=== PATIENT | female | born 1945 | race Caucasian/White ===

== ENCOUNTER 2018-12-21 17:27 | Inpatient (IN) | payer MEDICARE, OTHER ==
[~2018-12-21] VITALS: Ht 162.6 cm; Wt 49.7 kg
[2018-12-21] MEDS ORDERED: LOVA40 PO (22:11)
[2018-12-21] MEDS ORDERED: Bentyl10 MG (22:11)
[2018-12-21] MEDS ORDERED: Prinivil10 MG PO (22:11)
[2018-12-22 00:17] LABS: Alanine Aminotransfer (ALT/SGP 28 U/L (12-78); Albumin, Blood 2.9 g/dL (3.4-5.0); Albumin/Globulin Ratio 0.9 (0.8-1.8); Alk Phos 64 U/L (50-136); Anion Gap 9 mmol/L (6-16); Aspartate Aminotrans (AST/SGOT 17 U/L (12-37); Bilirubin, Total 1.2 mg/dL (0.1-1.0); Blood Urea Nitrogen 16 mg/dL (8-24); CO2, Blood 22 mmol/L (21-32); Calcium, Blood 7.7 mg/dL (8.5-10.1); Chloride, Blood 109 mmol/L (98-108); Creatinine, Blood 0.94 mg/dL (0.40-1.00); Globulin, Blood 3.3 g/dL (2.2-4.0); Glomerular Filtration Rate >60 (60-); Glucose, Blood 92 mg/dL (70-99); Potassium, Blood 3.7 mmol/L (3.5-5.5); Sodium, Blood 140 mmol/L (136-145); Total Protein, Blood 6.2 g/dL (6.4-8.2)
[2018-12-22 01:31] LABS: Adenovirus Not Detected (NOT DETECT); Bordetella pertussis Not Detected (NOT DETECT); Chlamydophila pneumoniae Not Detected (NOT DETECT); Coronavirus 229E Not Detected (NOT DETECT); Coronavirus HKU1 Not Detected (NOT DETECT); Coronavirus NL63 Not Detected (NOT DETECT); Coronavirus OC43 Not Detected (NOT DETECT); Human Metapneumovirus Not Detected (NOT DETECT); Human Rhinovirus/Enterovirus Not Detected (NOT DETECT); Influenza A Not Detected (NOT DETECT); Influenza A/2009-H1 Not Detected (NOT DETECT); Influenza A/H1 Not Detected (NOT DETECT); Influenza A/H3 Not Detected (NOT DETECT); Influenza B Not Detected (NOT DETECT); Mycoplasma pneumoniae Not Detected (NOT DETECT); Parainfluenza Virus 1 Not Detected (NOT DETECT); Parainfluenza Virus 2 Not Detected (NOT DETECT); Parainfluenza Virus 3 Not Detected (NOT DETECT); Parainfluenza Virus 4 Not Detected (NOT DETECT); Respiratory Syncytial Virus Not Detected (NOT DETECT)
[2018-12-22 03:50] LABS: Hematocrit 33.7 % (33.0-51.0); Hemoglobin 10.9 g/dL (11.5-16.0); Mean Corpuscular HGB 29.9 pg (26.0-34.0); Mean Corpuscular HGB Conc 32.3 g/dL (31.5-36.5); Mean Corpuscular Volume 93 fL (80-100); Mean Platelet Volume 10.2 fL (9.1-12.4); Platelet Count 146 K/mm3 (150-400); RDW Coefficient Variation 13.1 % (11.7-14.2); RDW Standard Deviation 44.8 fL (35.1-46.3); Red Blood Cell Count 3.64 M/mm3 (3.80-5.20); White Blood Cell Count 15.52 K/mm3 (4.00-11.30)
[2018-12-22 04:15] LABS: Albumin, Blood 2.8 g/dL (3.4-5.0); Albumin/Globulin Ratio 0.8 (0.8-1.8); Bilirubin, Total 0.7 mg/dL (0.1-1.0); Bun/Creatinine Ratio 17.2 (12.0-20.0); Calcium, Blood 7.7 mg/dL (8.5-10.1); Creatinine, Blood 0.99 mg/dL (0.40-1.00); Globulin, Blood 3.5 g/dL (2.2-4.0); Potassium, Blood 3.9 mmol/L (3.5-5.5); Total Protein, Blood 6.3 g/dL (6.4-8.2)
[2018-12-22 05:03] LABS: Source, Urine Catheter
[2018-12-22 05:04] LABS: Bilirubin, Urine Neg (Neg); Blood, Urine 3+ (Neg); Glucose Qualitative, Urine Neg (Neg); Ketones, Urine 3+ (Neg); Leukocyte Esterase, Urine Neg (Neg); Nitrite, Urine Neg (Neg); Protein, Urine 2+ (Neg); Specific Gravity, Urine 1.015 (1.003-1.022); Urobilinogen, Urine NORM (Normal)
[2018-12-22 05:11] LABS: Appearance, Urine Clear (Clear); Color, Urine Yellow (P-Yellow)
[2018-12-22 05:14] LABS: Bacteria Few /hpf; Squamous Epithelial Cells Mod /hpf (Few); White Blood Cells, Urine Not Seen /hpf (0-5)
--- NOTE | 2018-12-22 06:09 | NUR ---
ADMIT/SHIFT SUMMARY PT ARRIVED TO ICU 13 AT 0220 VIA ER BED. PT IS INTUBATED AND KICKING LEGS IN BED AT TIME OF ARRIVAL. PT TRANSFERED TO ICU BED. PROPOFOL INCREASED TO 40 MCG/GK/MIN AT TIME OF ARRIVAL. PT COPIOUS CLEAR ORAL SECRETIONS. VITAL SIGNS STABLE AT THIS TIME. VENT SETTINGS AC 14, TV 400, PEEP 5, FIO2 30%. PT CALMED AND PROPOFOL DOWN TO 30 MCG/KG/MIN AT THIS TIME. SBW RESTRAINTS IN PLACE. RUIZ TEMP PROBE IN PLACE FROM ER. UA SENT. PT SPOUSE AT BEDSIDE AT THIS TIME. NO ACUTE CHANGES SINCE ARRIVAL. WILL CONTINUE TO MONITOR AND REPORT OFF TO ONCOMING RN.
--- NOTE | 2018-12-22 07:33 | NUR ---
ASSUMED CARE REPORT FROM OLEG VEE. PATIENT IS INTUBATED, SEDATED ON PROPOFOL AT 30 MCG/KG/MIN AND RESTRAINED. AT BEDSIDE, GOING HOME UNTIL 1300 TO SLEEP.
--- NOTE | 2018-12-22 08:16 | NUR ---
MD VISIT DR. WHITE IN. ABG ORDERED.
[2018-12-22 08:45] LABS: PCO2 Arterial 30.1 mmHg (35-45); PO2 Arterial 108 mmHg (80-100); pH Blood Arterial 7.39 (7.35-7.45)
--- NOTE | 2018-12-22 09:27 | NUR ---
PATIENT CALM AND COOPERATIVE. FOLLOWS DIRECTION. MOUTHS "THANK YOU" AFTER CARE
--- NOTE | 2018-12-22 10:47 | NUR ---
CONFIRMED WITH ANSWERING SERVICE THAT CONSULT WAS CALLED IN
--- NOTE | 2018-12-22 10:48 | NUR ---
MD VISIT DR. DEGROOT IN
--- NOTE | 2018-12-22 10:48 | NUR ---
UPDATE GIVEN CALLED, UPDATE OF PLAN GIVEN.
--- NOTE | 2018-12-22 11:10 | NUR ---
UPDATE GIVEN TO DAUGHTER AFTER PATIENT NODDED YES THAT SHE COULD HAVE INFO.
--- NOTE | 2018-12-22 11:11 | NUR ---
DR. DIAMOND CALLED RE: CONSULT. DR. DEGROOT UPDATED HIM AND HE WILL BE IN THIS AFTERNOON. HE ORDERED AFRIN AT BEDSIDE AND THE BRONCHOSCOPE
--- NOTE | 2018-12-22 14:44 | NUR ---
AT BEDSIDE. SON IN TO VISIT. PATIENT WAS ABLE TO WRITE A NOTE FOR SON WHILE SEDATED ON 40 MCG/KG/MIN PROPOFOL. C/O BITE BLOCK HURTING. RT ADVISED
--- NOTE | 2018-12-22 16:27 | NUR ---
PATIENT COUGHING. REQUESTS A LITTLE MORE SEDATION WHEN ASKED. PROPOFOL TO 45 MCG/KG/MIN.
--- NOTE | 2018-12-22 22:29 | NUR ---
[place] of Care: Patient intubated and sedated. Ventilator to AC 14/400/5/25%, O2-98-100%, VSS. Propofol gtt at 45mcg/kg/min, occasional restlessness/agitation noted, gtt increased to 50mcg/kg/min. Verbal re-orientation/assurance also helpful to calm patient. Peripheral IV's x2 patent and intact. Patrick cath patent and intact, draining clear yellow urine. Dr. Ackerman contacted by day shift RN, awaiting his arrival to unit for possible bronchoscope procedure. Will continue to monitor for pain, comfort, safety.
[2018-12-23 03:47] LABS: BASOPHILS ABSOLUTE AUTO 0.03 K/mm3 (0.00-0.23); BASOPHILS PERCENT AUTO 0 % (0-2); EOSINOPHILS PERCENT AUTO 0 % (0-6); Hematocrit 34.3 % (33.0-51.0); Hemoglobin 11.3 g/dL (11.5-16.0); IMMATURE GRAN ABSOLUTE AUTO 0.24 K/mm3 (0.00-0.10); IMMATURE GRAN PERCENT AUTO 1 % (0-1); LYMPHOCYTES ABSOLUTE AUTO 0.99 K/mm3 (0.84-5.20); LYMPHOCYTES PERCENT AUTO 6 % (21-46); MONOCYTES ABSOLUTE AUTO 0.51 K/mm3 (0.16-1.47); MONOCYTES PERCENT AUTO 3 % (4-13); Mean Corpuscular HGB 29.7 pg (26.0-34.0); Mean Corpuscular HGB Conc 32.9 g/dL (31.5-36.5); Mean Platelet Volume 10.5 fL (9.1-12.4); NEUTROPHILS ABSOLUTE AUTO 15.46 K/mm3 (1.96-9.15); NEUTROPHILS PERCENT AUTO 90 % (41-73); Platelet Count 174 K/mm3 (150-400); RDW Coefficient Variation 13.2 % (11.7-14.2); RDW Standard Deviation 43.6 fL (35.1-46.3); Red Blood Cell Count 3.81 M/mm3 (3.80-5.20); White Blood Cell Count 17.23 K/mm3 (4.00-11.30)
[2018-12-23 03:50] LABS: Mean Corpuscular Volume 90 fL (80-100)
[2018-12-23 04:06] LABS: Alanine Aminotransfer (ALT/SGP 21 U/L (12-78); Albumin, Blood 2.7 g/dL (3.4-5.0); Albumin/Globulin Ratio 0.7 (0.8-1.8); Alk Phos 62 U/L (50-136); Anion Gap 8 mmol/L (6-16); Aspartate Aminotrans (AST/SGOT 12 U/L (12-37); Bilirubin, Total 0.4 mg/dL (0.1-1.0); Blood Urea Nitrogen 26 mg/dL (8-24); Bun/Creatinine Ratio 27.9 (12.0-20.0); CO2, Blood 22 mmol/L (21-32); Calcium, Blood 8.2 mg/dL (8.5-10.1); Chloride, Blood 114 mmol/L (98-108); Creatinine, Blood 0.93 mg/dL (0.40-1.00); Globulin, Blood 3.7 g/dL (2.2-4.0); Glomerular Filtration Rate >60 (60-); Glucose, Blood 173 mg/dL (70-99); Magnesium, Blood 2.3 mg/dL (1.6-2.4); Phosphorus, Blood 2.6 mg/dL (2.5-4.9); Potassium, Blood 3.5 mmol/L (3.5-5.5); Sodium, Blood 144 mmol/L (136-145); Total Protein, Blood 6.4 g/dL (6.4-8.2)
[2018-12-23 04:43] LABS: PCO2 Arterial 29.8 mmHg (35-45); PO2 Arterial 87.2 mmHg (80-100); pH Blood Arterial 7.44 (7.35-7.45)
--- NOTE | 2018-12-23 06:33 | NUR ---
SHIFT SUMMARY Continued intubation/sedation, vent to AC 14/400/5/25% VSS throughout shift. Propofol was at 35-50 throughout shift, periods of restlessness and anxiety, otherwise calm, cooperative and follows commands. Dr Ackerman to room early in shift performed nasal scope, confirmed moderate to severe epiglottal swelling. RT Phillip deflated ETT cuff x2, no cuff leak noted both occasions. Peripheral IV's remain patent and intact. Patrick cath remains patent and intact, draining clear yellow to dark yellow urine. Call placed to Dr. Villanueva this morning related to low urine output. Obtained orders for LR @ 75ml/hr. Also obtained order for fentanyl 25-50mcg q1h prn for complaints of throat pain. Will monitor until report to day shift.
--- NOTE | 2018-12-23 08:40 | NUR ---
INITIAL ASSESSMENT PATIENT IS INTUBATED AND ON SEDATION. PATIENT FOLLOWS SIMPLE COMMANDS, NODS HEAD TO QUESTIONS. PATIENT HAS BILATERAL SOFT WRIST RESTRAINTS IN PLACE. PATIENT WAS GIVEN PRN PAIN MEDICATION FOR THROAT PAIN. PATIENT IS HAVING CLEAR/WHITE SECRETIONS BEING SUCTIONED FROM ETT. PATIENT HAS AN OCCASIONAL PRODUCTIVE COUGH. PATIENT IS SATTING WELL ON CURRENT VENTILATOR SETTINGS: AC 14, TV 400, PEEP 5, FI02 6.5. HR IS 60S-70S. BP IS STABLE. PATIENT WAS GIVEN PRN SUPPOSITORY DUE TO LAST BM RECORDED 12/19/18. TEMP RUIZ IN PLACE DRAINING DARK YELLOW URINE. SKIN IS WNL. PROPOFOL IS AT 45 MCG/KG/MIN. LR AT 75 ML/HR TKO. BED LOW. CALL LIGHT IN REACH. WILL CONTINUE TO MONITOR.
--- NOTE | 2018-12-23 13:18 | NUR ---
PATIENT REMAINS INTUBATED AND SEDATED. PATIENT DAUGHTER IS AT THE BEDSIDE. PATIENT IS AFEBRILE. PATIENT REMAINS FOLLOWING SIMPLE COMMANDS, AND NODS HEAD TO QUESTIONS. LUNG SOUNDS ARE COARSE T/O AND DIMINISHED IN THE LOWER LOBES. PATIENT IS SATTING WELL WITH CURRENT VENTILATOR SETTINGS OF AC 14, TD 400, PEEP 5, FIO2 25%. PATIENT REMAINS NSR WITH HR IN THE 60S-70S. BP IS STABLE. RESIDUALS REINSTILLED ARE 5 ML AT THIS TIME. VHP IS INFUSING AT GOAL RATE OF 25 ML/HR. PATIENT HAS HYPOACTIVE BOWEL SOUNDS AT THIS TIME. PATIENT HAS TEMP RUIZ DRAINING DARK YELLOW/GREEN URINE. SKIN IS WNL. PROPOFOL 45 MCG/KG/MIN. LR 75 ML/HR. NO ACUTE CHANGES TO NOTE AT THIS TIME. WILL CONTINUE TO MONITOR.
--- NOTE | 2018-12-23 18:34 | NUR ---
SHIFT SUMMARY PATIENT REMAINS INTUBATED AND SEDATED. DAUGHTER AND SIGNIFICANT OTHER IN TO VISIT PATIENT TODAY AND WERE AT BEDSIDE. PATIENT HAD PERIODS OF AGITATION AND ANXIETY R/T COUGHING WHILE INTUBATED THROUGHOUT THE SHIFT. PATIENT CONTINUES TO FOLLOW COMMANDS, NODS HEAD TO QUESTIONS, AND UTILIZES THE PEN AND PAPER TO COMMUNICATE WHEN NEEDED. PATIENT HAS MODERATE WHITE/CLEAR SECRETIONS NOTED WHILE SUCTIONING ETT. PATIENT IS TOLERATING VENTILATOR SETTINGS WELL W AC 10, TV 500, PEEP 5, FIO2 25%. HR IN 50S-60S, BP IS STABLE. OG WAS PLACED THIS AM TO BEGIN VHP AT GOAL RATE OF 25 ML/HR AND THIS CONTINUES TO INFUSE. RESIDUALS REINSTILLED WERE BETWEEN 5-10ML. PRN SUPPOSITORY WAS GIVEN THIS AM, PATIENT HAD VERY SMALL BM AFTER THIS. PATIENT HAS YELLOW/GREEN URINE DRAINING FROM TEMP PROBE RUIZ. SKIN IS WNL. PROPOFOL 40 MCG/KG/MIN. LR 75 ML/HR. NS TKO. NO OTHER ACUTE CHANGES TO NOTE AT THIS TIME. BED LOW, CALL LIGHT WITHIN REACH.
--- NOTE | 2018-12-23 19:15 | NUR ---
ASSUMPTION OF CARE: Pt is intubated and sedated with vent set to AC 10/400/5/25%. Propofol at 40mcg/kg/min, Pt is awake, alert and oriented with VSS. OG tube present with continuous feeding, at goal rate of 25ml/hr. Pt complains of throat pain, PRN IV fentanyl effective to control pain. IV access x2, patent and infusing with dressings intact. Patrick cath in place draining clear yellow urine. Pt able to communicate via writing. Plan for spontaneous breathing trial in the morning. Will continue to monitor for pain, comfort, and safety.
[2018-12-24 05:00] LABS: PCO2 Arterial 36.5 mmHg (35-45); PO2 Arterial 74.3 mmHg (80-100); pH Blood Arterial 7.42 (7.35-7.45)
[2018-12-24 05:29] LABS: BASOPHILS ABSOLUTE AUTO 0.01 K/mm3 (0.00-0.23); BASOPHILS PERCENT AUTO 0 % (0-2); EOSINOPHILS PERCENT AUTO 0 % (0-6); Hematocrit 34.4 % (33.0-51.0); IMMATURE GRAN ABSOLUTE AUTO 0.13 K/mm3 (0.00-0.10); IMMATURE GRAN PERCENT AUTO 1 % (0-1); LYMPHOCYTES ABSOLUTE AUTO 0.91 K/mm3 (0.84-5.20); LYMPHOCYTES PERCENT AUTO 8 % (21-46); MONOCYTES ABSOLUTE AUTO 0.48 K/mm3 (0.16-1.47); MONOCYTES PERCENT AUTO 4 % (4-13); Mean Platelet Volume 10.8 fL (9.1-12.4); NEUTROPHILS PERCENT AUTO 87 % (41-73); Platelet Count 185 K/mm3 (150-400); RDW Coefficient Variation 13.2 % (11.7-14.2); RDW Standard Deviation 45.7 fL (35.1-46.3); Red Blood Cell Count 3.67 M/mm3 (3.80-5.20); White Blood Cell Count 12.13 K/mm3 (4.00-11.30)
[2018-12-24 05:33] LABS: Mean Corpuscular Volume 94 fL (80-100)
[2018-12-24 05:50] LABS: Alanine Aminotransfer (ALT/SGP 18 U/L (12-78); Albumin, Blood 2.4 g/dL (3.4-5.0); Albumin/Globulin Ratio 0.6 (0.8-1.8); Alk Phos 55 U/L (50-136); Anion Gap 6 mmol/L (6-16); Aspartate Aminotrans (AST/SGOT 8 U/L (12-37); Bilirubin, Total 0.2 mg/dL (0.1-1.0); Blood Urea Nitrogen 32 mg/dL (8-24); Bun/Creatinine Ratio 36.3 (12.0-20.0); CO2, Blood 26 mmol/L (21-32); Calcium, Blood 8.4 mg/dL (8.5-10.1); Chloride, Blood 112 mmol/L (98-108); Creatinine, Blood 0.88 mg/dL (0.40-1.00); Globulin, Blood 3.8 g/dL (2.2-4.0); Glomerular Filtration Rate >60 (60-); Glucose, Blood 181 mg/dL (70-99); Magnesium, Blood 2.4 mg/dL (1.6-2.4); Phosphorus, Blood 2.7 mg/dL (2.5-4.9); Potassium, Blood 4.1 mmol/L (3.5-5.5); Sodium, Blood 144 mmol/L (136-145); Total Protein, Blood 6.2 g/dL (6.4-8.2)
[2018-12-24 05:53] LABS: Vancomycin, Trough 5.1 ug/mL (5.0-10.0)
--- NOTE | 2018-12-24 05:59 | NUR ---
SHIFT SUMMARY: Pt continued intubation and sedation. Vent set to AC 10/400/5/25%, VSS throughout shift. Propofol titrated between 35 and 50 throughout shift, continues to be calm and cooperative, follows commands. Propofol increased per pts request to help sleep. IV x2 intact and infusing without difficulty. Tube feeding continues at goal with residuals of 15-60ml, no signs of GI intolerance. Patrick cath in place draining dark yellow/green tinged urine. PRN fentanyl give x2 for complaints of throat pain with good effect. ET cuff deflated by RT Gabbi, positive cuff leak noted. Will continue to monitor until report to day shift RN.
--- NOTE | 2018-12-24 07:54 | NUR ---
ASSUMED CARE PT. ALERT THIS AM. INTUBATED WITH PROPOFOL FOR SEDATION AT 55MCG/KG/MIN HOWEVER PT WIDE AWAKE AND FOLLOWING COMMANDS. PT. REQUESTING FREQUENT ORAL SUCTIONING DUE TO COPIOUS AMOUNTS OF THIN SECREATIONS. PT. ABLE TO WRITE ON CLIPBOARD THIS AM, PT WRITES TO COMMUNICATE. COARSE LUNG SOUNDS T/O. PT HAS GOOD COUGH AND GAG. CUFF LEAK NOTED THIS AM WHEN PT ATTEMPTING TO TALK. PT. VSS AT THIS TIME. TF RUNNING AT GOAL OF 25ML/HR WITH MINIMAL RESIDUAL. PT. MED FOR DISCOMFORT WITH FENTANYL PER REQUEST. PT. RUIZ IN PLACE DRAINING TO GRAVITY. NATYN.
--- NOTE | 2018-12-24 12:23 | NUR ---
DR. PINO AT BEDSIDE TUBE FEEDING PLACED ON STAND BY FOR POSSIBLE EXTUBATION TODAY AND AWAITING DR. DIAMOND TO SCOPE PT. PRIOR TO EXTUBATION. PT. PROPOFOL OFF AT THIS TIME WELL. PT TOLERATING WELL ON SPONT VENT SETTINGS. FAMILY AT BEDSIDE.
--- NOTE | 2018-12-24 13:20 | NUR ---
PT EXTUBATED DR. DIAMOND IN TO ASSESS/ SCOPE PT. PER DR. DIAMOND SWELLING HAS SIGNIFICANTLY DECREASED. DR. ELLSWORTH NOTIFIED. PT. EXTUBATED AT THIS TIME. PT. TOLERATED WELL. PLACED ON 4LNC UPON EXTUBATION. PT. HAS STRONG COUGH, NO STRIDOR OR WHEEZING NOTED POST EXTUBATION. SUCTION AT BEDSIDE.
--- NOTE | 2018-12-24 15:52 | NUR ---
UPDATE PT. RESTING COMFORTABLY IN BED, CURRENTLY ON 2LNC. PT. DENIES PAIN AT THIS TIME. NO S/S OF DIFFICULTY BREATHING. GOOD COUGH.
--- NOTE | 2018-12-24 17:52 | NUR ---
SHIFT SUMMARY PT. REMAINS ON 2LNC ONCE EXTUBATED. PT. VSS T/O SHIFT. PT. SIGNIFICANT OTHER REMAINS AT BEDSIDE. PT. VOICE HOARSE HOWEVER NO DIFFICULTY SWALLOWING OR BREATHING AT THIS TIME. PT. PROVIDED WITH ICE CHIPS AND IS TOLERATING WELL. RUIZ IN PLACE DRAINING TO GRAVITY. REPORT TO ONCOMING RN.
--- NOTE | 2018-12-24 20:14 | NUR ---
ASSESSMENT PT AWAKE SITTING UP IN BED WITH RT AT BEDSIDE. DENIES PAIN OR DICOMFORT EXCEPT FOR MOUTH SORE. BP ELEVATED. CALL OUT TO HOSPITALIST QUAN REGARDING MOUTH SORE AND ELEVATED BP. RECEIVED ORDER FOR LISNOPRIL AND ORALJEL. PT MOVING SELF IN BED. LUNGS CLEAR ON 1.5 LITERS O2 VIA NC. DENIES SOB OR COUGH. HEART RATE REGULAR. NO EDEMA. BT+ ABD SOFT AND NONTENDER. TAKING ICE CHIPS WITHOUT DIFFICULTY. RUIZ CATH PATENT DRAINING CLEAR YELLOW URINE. IV 20G TO RIGHT AC WITH LR AT TKO AND NS AT TKO, SITE CLEAR. IV 20 TO LEFT FA SALINE LOCKED, SITE CLEAR.
--- NOTE | 2018-12-24 20:42 | NUR ---
PAIN PT C/O GENERAL PAIN "ALL OVER" 5/10 MED WITH FENTANYL 50 MCQ WITH GOOD RESULTS. HS MEDS GIVEN.
--- NOTE | 2018-12-24 23:11 | NUR ---
HTN CALL TO HOSPITALIST QUAN REGARDING HTN, RECEIVED ORDER FOR HYDRALAZINE PO
--- NOTE | 2018-12-24 23:30 | NUR ---
REASSESSMENT PT AWAKE, BACK TO BED FROM BATHROOM. DENIES PAIN AT THIS TIME. MED WITH HYDRALAZINE PO FOR HTN. LUNGS CLEAR ON 1.5 LITERS O2 VIA NC. RESP EVEN AND NONLABORED. HEART RATE REGULAR. CONT TO MONITOR BP
--- NOTE | 2018-12-25 00:09 | NUR ---
PAIN PT C/O SHOULDER PAIN 01/18. BACK RUB DONE. PT MED WITH FENTANYL 25 MCQ.
--- NOTE | 2018-12-25 00:20 | NUR ---
PAIN PT STATES,"THAT GAS PAIN IS BACK IN MY SHOULDERS 02/18". PT GIVEN WARM BLANKET AROUUND SHOULDERS AND MED WITH FENTANYL 25 MCQ.
--- NOTE | 2018-12-25 02:28 | NUR ---
PAIN PT AWAKE. C/O PAIN 5/10 TO SHOULDERS. MED WITH FENTANYL 50 MCQ AND WARM BLANKET APPLIED TO SHOULDERS. PT MOVING SELF IN BED.
--- NOTE | 2018-12-25 05:39 | NUR ---
SHIFT SUMMARY PT RESTING QUIETLY. MED WITH FENTANYL DURING THE NIGHT FOR PAIN TO SHOULDERS WITH GOOD RESULTS. HTN, RESTARTED ON LISONPRIL AND HYDRALAZINE PRN FOR SBP >160. PT REQUESTED RUIZ CATH DC'D. REMOVED AT 0530. PT UP TO BATHROOM WITH STANDBY ASSIST. USING CALL LIGHT. MOVING AND TURNING SELF IN BED. REPORT TO ON COMING NURSE
--- NOTE | 2018-12-25 09:00 | NUR ---
ASSUMED CARE PT ALERT AND ORIENTED. VS STABLE. O2 SATS 100% ON 1.5L NC. PT TITRATED TO ROOM AIR AND SATS REMAINED ABOVE 92%. PT COMPLAINS OF PAIN TO RIGHT SHOULDER THAT IS RELIEVED WITH MEDICATION ADMINISTRATION. PT ABLE TO TOLERATE CLEAR LIQUIDS AND TAKE MEDICATIONS WHOLE. PT ABLE TO TRANSFER TO BSC NEEDED TO VOID WITH SBA AND FWW. DR. GARCIA IN TO SEE PT THIS AM. DR. PINO WOULD LIKE PT TO STAY ONE MORE DAY FOR MONITORING. WILL CONTINUE TO MONITOR.
--- NOTE | 2018-12-25 14:07 | NUR ---
REPORT CALLED TO MEDICAL FLOOR RN.
--- NOTE | 2018-12-25 17:16 | NUR ---
PT WAS TRANSFERED UP TO HER ROOM AND SETTLED IN . UPON ARRIVAL PT HAD A BP OF 195/98. PT HAD JUST RECIEVED BP MEDICATION PER EMAR PRIOR TO COMMING UP. WHEN VITALS RETAKEN AN HOUR LATER BP 160/81. PT AOX4 AND COOPERATIVE OF ALL CARE. CALLS APPROPRIATLY AND INDEPENDENT IN ROOM. NO DISTRESS NOTED.
--- NOTE | 2018-12-26 04:58 | NUR ---
SHIFT SUMMARY PT A/O. C/O PAIN IN ABD SAYING IT'S GAS PAIN. MEDICATED C FENTANYL X2 AND ALSO TRIED STOOL SOFTENER AND MOM. SHE TRIED LAYING ON L SIDE AND K-PAD AND SHE SAID THIS WAS ABLE TO HELP AND WAS BURPING SOME. HE WAS ABLE TO DOZE OFF AND ON T/O NIGHT. CALL LIGHT IN REACH.
[2018-12-26] MEDS ORDERED: AMLO10 PO (11:20)
[2018-12-26] MEDS ORDERED: LEVFLO500 PO (11:21)
[2018-12-26] MEDS ORDERED: HURRICAINE ONE1 EACH MM (11:27)
[2018-12-26] MEDS ORDERED: LISI20 PO (11:28)
--- NOTE | 2018-12-26 12:15 | NUR ---
PT DISCAHRGED PT DISCAHRGED AT 1215. PT IN STABLE CONDITION WITH VSS. PT EDUCATED ON DC INSTRUCTIONS & MED CHANGES. APPOINTMENT MADE FOR FOLLOW UP. PT DENIES ANY QUESTIONS AT THIS TIME. PT WHEELED OUT & DRIVEN HOME BY SIGNIFICANT OTHER. IV REMOVED & INTACT.
== END 2018-12-26 12:14 | disposition home or self-care (01) | DRG 152 ==
LOC: ER 17:27 → ICUW 12-22 01:35 → MEDS 12-25 14:30 → ENPENDDIS 12-26 10:53 → MEDS 12-26 12:14
PROVIDERS: Emergency Medicine; Hospitalist; Internal Medicine Critical Care Medicine; ADMIT Internal Medicine
PROC: 5A1945Z Respiratory Ventilation, 24-96 Consecutive Hours (ICD-10-PCS; principal; 2018-12-22)
PROC: 0BH17EZ Insertion of Endotracheal Airway into Trachea, Via Natural or Artificial Opening (ICD-10-PCS; 2018-12-22)
PROC: 0CJS8ZZ Inspection of Larynx, Via Natural or Artificial Opening Endoscopic (ICD-10-PCS; 2018-12-22)
DX: J05.10 Acute epiglottitis without obstruction (principal); J96.01 Acute respiratory failure with hypoxia; Z99.11 Dependence on respirator [ventilator] status; I10 Essential (primary) hypertension; E78.5 Hyperlipidemia, unspecified; E07.89 Other specified disorders of thyroid; I16.0 Hypertensive urgency; R13.10 Dysphagia, unspecified
CPT/HCPCS: 31500; 31720; 36415; 36600; 51702; 70491; 71045; 80053; 80202; 81001; 82330; 82803; 82947; 83605; 83735; 84100; 85025; 85027; 87040; 87070; 87205; 87486; 87581; 87633; 87798; 92610; 94002; 94003; 94640; 94760; 96361-59; 96374-59; 96375-59; 99291-25; C9113; J0330; J0696; J1200; J1650; J2060; J2250; J2704; J2920; J2930; J3010; J3370; J7030; J7040; J7050; J7120; Q0163; Q9967

== ENCOUNTER → 2020-02-04 | Outpatient (CLI) | payer MEDICARE, OTHER ==
[~2020-02-04] MED LIST: AMLO10 PO; Bentyl10 MG; HURRICAINE ONE1 EACH MM; LEVFLO500 PO; LISI20 PO; LOVA40 PO; Prinivil10 MG PO
== END | disposition home or self-care (01) ==
LOC: LAB SHORT 09:17 → PLD 09:17
DX: D48.5 Neoplasm of uncertain behavior of skin (principal)
CPT/HCPCS: 88305

== ENCOUNTER → 2021-09-14 | Outpatient (CLI) | payer MEDICARE ==
[2021-09-15 09:37] LABS: Candida species (DNA Probe) Negative (NEGATIVE); G. vaginalis (DNA Probe) Positive (NEGATIVE); T. vaginalis (DNA Probe) Negative (NEGATIVE)
== END | disposition home or self-care (01) ==
LOC: LAB SHORT 14:45
PROVIDERS: Family Medicine
DX: N89.8 Other specified noninflammatory disorders of vagina (principal)
CPT/HCPCS: 87480; 87510; 87660

== ENCOUNTER → 2022-10-28 | Outpatient (CLI) | payer MEDICARE ==
[~2022-10-28] MED LIST changes: +MACRODANTIN100 M1 PO; +SYMBICORT 160-4.6 GM INH
[2022-10-28 17:30] LABS: Source, Urine Clean Catch
[2022-10-28 18:51] LABS: Appearance, Urine Hazy (Clear); Bilirubin, Urine Neg (Neg); Blood, Urine 5+ (Neg); Color, Urine Yellow (P-Yellow); Glucose Qualitative, Urine Neg (Neg); Ketones, Urine Neg (Neg); Leukocyte Esterase, Urine 3+ (Neg); Nitrite, Urine Neg (Neg); Protein, Urine 3+ (Neg); Urobilinogen, Urine NORM (Normal)
[2022-10-28 19:14] LABS: Bacteria Mod /hpf; Red Blood Cells, Urine 25-50 /hpf (0-2); Squamous Epithelial Cells Few /hpf (Few); White Blood Cells, Urine TNTC /hpf (0-5)
[2022-10-29 13:54] LABS: Candida species (DNA Probe) Negative (NEGATIVE); G. vaginalis (DNA Probe) Positive (NEGATIVE); T. vaginalis (DNA Probe) Negative (NEGATIVE)
== END | disposition home or self-care (01) ==
LOC: LAB 17:28 → LAB SHORT 17:28
PROVIDERS: Obstetrics & Gynecology
DX: N89.8 Other specified noninflammatory disorders of vagina (principal); R30.0 Dysuria
CPT/HCPCS: 81001; 87077; 87086; 87186; 87480; 87510; 87660

== ENCOUNTER 2022-11-02 08:59 | Day surgery (SDC) | payer MEDICARE ==
[~2022-11-02] VITALS: Ht 160 cm; Wt 48.7 kg
[2022-11-02] MEDS ORDERED: METR250 PO (09:44)
[2022-11-02] MEDS ORDERED: BENADRYL25 MG PO (09:44)
[2022-11-02] MEDS ORDERED: MULVITA PO (09:44)
[2022-11-02] MEDS ORDERED: CLIMARA1 EACH TOP (09:46)
[2022-11-02] MEDS ORDERED: Cyclobenzaprine5 MG PO (09:46)
--- NOTE | 2022-11-02 10:16 | NUR ---
11/02/22 Cade Adams HISTORY, CHART, MEDICATIONS AND ALLERGIES REVIEWED BEFORE START OF PROCEDURE. PATIENT CONFIRMS NPO STATUS AND AGREES WITH SCHEDULED PROCEDURE. 3-LEAD EKG REVIEWED WITH PHYSICIAN PRIOR TO START OF PROCEDURE. MONITOR INTACT WITH CONTINUOUS PULSE OXIMETRY,CAPNOGRAPHY, 3-LEAD EKG, INTERMITTENT BP. SUPPLEMENTAL O2 TO BE TITRATED THROUGHOUT PROCEDURE TO MAINTAIN O2 SATURATION ABOVE 90%. PATIENT DETERMINED TO BE ASA APPROPRIATE FOR PROPOFOL SEDATION PRIOR TO START OF PROCEDURE BY
--- NOTE | 2022-11-02 11:23 | NUR ---
DISCHARGE NOTE Patient up to Ambulate independently. Gait steady. Discharge instructions reviewed with patient. Patient verbalizes understanding. Copy given to patient to take home. Discharged via wheelchair to private car for ride home. VSS. NO NAUSEA.
== END 2022-11-02 11:30 | disposition home or self-care (01) ==
LOC: ORSCMMR 08:59 → ORD 10:00 → ORSCMMR 11:30
PROVIDERS: Internal Medicine Gastroenterology
PROC: 0W3P8ZZ Control Bleeding in Gastrointestinal Tract, Via Natural or Artificial Opening Endoscopic (ICD-10-PCS; principal; 2022-11-02 10:00)
DX: R19.5 Other fecal abnormalities (principal); K55.21 Angiodysplasia of colon with hemorrhage; I10 Essential (primary) hypertension; E78.00 Pure hypercholesterolemia, unspecified; Z87.891 Personal history of nicotine dependence; Z79.899 Other long term (current) drug therapy
CPT/HCPCS: J2704; J7120

== ENCOUNTER 2024-09-18 11:15 | Day surgery (SDC) | payer OTHER ==
[~2024-09-18] VITALS: Ht 157.5 cm; Wt 49.4 kg
[~2024-09-18 11:15] MED LIST changes: +BENADRYL25 MG PO; +Balanced Salt Epinephrine Irrigation Solution 500 mL IR SCH; +CLIMARA1 EACH TOP; +Cyclobenzaprine5 MG PO; +Lidocaine HCl/Pf 1% 5 ML VIAL XX SCH; +METR250 PO; +MULVITA PO; +Moxifloxacin HCL 0.5 MG/0.1 ML 0.4MLSYR RIGHTEYE SCH; +PHENYLEPHRINE\\TROPICAMIDE\\TETRACAINE OPHTHALMIC DILATING SOLN RIGHTEYE PRN; +Povidone-Iodine 450 DROP/30 ML Solution ONE; +Povidone-Iodine 450 DROP/30 ML Solution RIGHTEYE SCH; +Tetracaine HCl/Pf 0.5% Opth Soln 4 ml ONE
[2024-09-18] MEDS ORDERED: Diazepam 2 MG Tab ONE ×2 (11:34→12:13)
[2024-09-18] MEDS ORDERED: Diazepam 5 MG Tab ONE (11:34)
--- NOTE | 2024-09-18 11:44 | NUR ---
09/18/24 Humberto4 Anne Marie Orantes VALIUM 7MG GIVEN PER ORDER, 12/19 ANXIETY LEVEL. TETRACAINE AT 1144 PLEDGET AT 1145
[2024-09-18] MEDS ORDERED: IMITREX50 M2 PO (11:48)
[2024-09-18 12:59] VITALS: BP 132/65
== END 2024-09-18 13:09 | disposition home or self-care (01) ==
LOC: ORSCSDS 11:15
PROVIDERS: Student in an Organized Health Care Education/Training Program
PROC: 08RJ3JZ Replacement of Right Lens with Synthetic Substitute, Percutaneous Approach (ICD-10-PCS; principal; 2024-09-18 12:30)
DX: H25.813 Combined forms of age-related cataract, bilateral (principal); H43.22 Crystalline deposits in vitreous body, left eye; I10 Essential (primary) hypertension; Z79.899 Other long term (current) drug therapy
CPT/HCPCS: A9270; V2632

== ENCOUNTER 2024-10-08 08:35 | Day surgery (SDC) | payer OTHER ==
[~2024-10-08] VITALS: Ht 162.6 cm; Wt 49.5 kg
[~2024-10-08 08:35] MED LIST changes: +IMITREX50 M2 PO; +Lidocaine HCl/Pf 1% 5 ML VIAL ONE; +Moxifloxacin HCL 0.5 MG/0.1 ML 0.4MLSYR LEFTEYE SCH; -Moxifloxacin HCL 0.5 MG/0.1 ML 0.4MLSYR RIGHTEYE SCH; +PHENYLEPHRINE\\TROPICAMIDE\\TETRACAINE OPHTHALMIC DILATING SOLN LEFTEYE PRN; -PHENYLEPHRINE\\TROPICAMIDE\\TETRACAINE OPHTHALMIC DILATING SOLN RIGHTEYE PRN; +Povidone-Iodine 450 DROP/30 ML Solution LEFTEYE SCH; -Povidone-Iodine 450 DROP/30 ML Solution ONE; -Povidone-Iodine 450 DROP/30 ML Solution RIGHTEYE SCH; -Tetracaine HCl/Pf 0.5% Opth Soln 4 ml ONE
[2024-10-08] MEDS ORDERED: Diazepam 5 MG Tab ONE (08:38)
[2024-10-08] MEDS ORDERED: Diazepam 2 MG Tab ONE (08:38)
[2024-10-08] MEDS ORDERED: TRIDERM28.4 GM TOP (09:06)
--- NOTE | 2024-10-08 09:16 | NUR ---
10/08/24 0916 BROOKLYN Martínez ADMINISTERED AT 0900 AM. 7MG GIVEN PO.
[2024-10-08] MEDS ORDERED: Tetracaine HCl 0.5% Opth Soln 15 ml LEFTEYE ONE (10:05)
[2024-10-08 10:31] VITALS: BP 145/75
--- NOTE | 2024-10-08 10:44 | NUR ---
10/08/24 1044 Letha Ryder D/C INSTRUCTIONS GIVEN TO PT, UNDERSTANDING VERBALIZED. PT HAS ALL BELONGINGS INCLUDING SUMMER, PURSE & CLOTHING. PT AMBULATED FROM CART TO RECLINER W/ STEADY GAIT & NO ASSISTANCE NEEDED. PT GIVEN EYE KIT & D/C PACKET. PT WHEELED TO PT PICKUP ENTRANCE WHERE SHE WILL BE DRIVEN HOME BY IN PRIVATE VEHICLE. STEADY GAIT UPON TRANSFER FROM TO VEHICLE. EYE SHIELD REMAINS IN PLACE. NO VISIBLE SIGNS OF DISTRESS NOTED.
[2024-10-08] MEDS ORDERED: Povidone-Iodine 450 DROP/30 ML Solution XX ONE (15:32)
== END 2024-10-08 10:40 | disposition home or self-care (01) ==
LOC: ORSCSDS 08:35
PROVIDERS: Student in an Organized Health Care Education/Training Program
PROC: 08RK3JZ Replacement of Left Lens with Synthetic Substitute, Percutaneous Approach (ICD-10-PCS; principal; 2024-10-08 10:00)
DX: H25.812 Combined forms of age-related cataract, left eye (principal); Z96.1 Presence of intraocular lens; H43.21 Crystalline deposits in vitreous body, right eye; I10 Essential (primary) hypertension; Z87.891 Personal history of nicotine dependence; Z79.899 Other long term (current) drug therapy
CPT/HCPCS: A9270; J2003; V2632

== ENCOUNTER 2025-03-25 20:38 | Emergency (ER) | payer OTHER ==
[~2025-03-25] VITALS: Ht 162.6 cm; Wt 48.1 kg
[~2025-03-25 20:38] MED LIST changes: -Balanced Salt Epinephrine Irrigation Solution 500 mL IR SCH; -Lidocaine HCl/Pf 1% 5 ML VIAL ONE; -Lidocaine HCl/Pf 1% 5 ML VIAL XX SCH; -Moxifloxacin HCL 0.5 MG/0.1 ML 0.4MLSYR LEFTEYE SCH; -PHENYLEPHRINE\\TROPICAMIDE\\TETRACAINE OPHTHALMIC DILATING SOLN LEFTEYE PRN; -Povidone-Iodine 450 DROP/30 ML Solution LEFTEYE SCH; +TRIDERM28.4 GM TOP
[2025-03-25 20:42] VITALS: BP 210/104
== END 2025-03-25 22:21 | disposition home or self-care (01) ==
LOC: ER 20:38
DX: T78.49XA Other allergy, initial encounter (principal); I10 Essential (primary) hypertension; E78.00 Pure hypercholesterolemia, unspecified; Z87.891 Personal history of nicotine dependence; Z79.899 Other long term (current) drug therapy; Z91.038 Other insect allergy status; Z91.040 Latex allergy status; Z88.8 Allergy status to other drugs, medicaments and biological substances
CPT/HCPCS: 99282